=== PATIENT | male | born 1955 | race Caucasian/White ===

== ENCOUNTER 2018-04-27 11:45 | Inpatient (IN) ==
[2018-04-27] MEDS ORDERED: Sod Chloride 0.9% Inj 2,000 ML IV.SIG ONE (13:56)
[2018-04-27 14:26] LABS: Baso % (Auto) 0.7 % (0.0-2.0); Eos # (Auto) 0.2 th/mm3 (0.0-0.4); Hematocrit 40.3 % (39.0-51.0); Hemoglobin 13.4 gm/dL (13.0-17.0); Lymph # (Auto) 1.3 th/mm3 (1.0-4.8); Lymph % (Auto) 21.7 % (9.0-44.0); Mean Corpuscular HGB Conc 33.3 % (32.0-36.0); Mean Corpuscular Hemoglobin 30.6 pg (27.0-34.0); Mean Corpuscular Volume 91.8 fL (80.0-100.0); Mono # (Auto) 0.6 th/mm3 (0.0-0.9); Neut # (Auto) 3.9 th/mm3 (1.8-7.7); Neut % (Auto) 63.6 % (16.0-70.0); Platelet Count 324 th/mm3 (150-450); Red Blood Count 4.39 mil/mm3 (4.50-5.90); Red Cell Distribution Width 13.8 % (11.6-17.2); White Blood Count 6.2 th/mm3 (4.0-11.0)
--- NOTE | 2018-04-27 14:32 | ED ---
HPI General Chief complaint: Medical Clearance Stated complaint: dr sent/abnormal labs Time Seen by Provider: 04/27/18 13:49 Source: patient Mode of arrival: ambulatory History of Present Illness HPI narrative: 62yM sent in by PMD for abnormal labs. The patient states that for the past 4-5 days he's been having fevers (Tmax 104F), diaphoresis, nausea/ decreased PO intake, and watery diarrhea. He admits to diffuse "cramping" abdominal pain which is intermittent, non-radiating, not made better or worse by anything, and mild to moderate intensity. He was seen by his PMD yesterday and had a CXR (negative), X-ray abdomen (showed "gas in the bowel" as per family member), and labs that showed "severe dehydration", so he was sent to the ED for IV fluids and evaluation. The patient denies recent travel, antibiotics, or known sick contacts; he does not have any history of colitis, diverticulitis, or appendicitis in the past. Family history is non-contributory. Related Data Home Medications Medication Instructions Recorded Confirmed aspirin 81 mg PO DAILY 04/27/18 04/27/18 cholecalciferol (vitamin D3) 2,000 unit PO DAILY 04/27/18 04/27/18 [Vitamin D3] diltiazem HCl [Cardizem CD] 240 mg PO DAILY 04/27/18 04/27/18 hydrochlorothiazide 12.5 mg PO DAILY 04/27/18 04/27/18 lisinopril 40 mg PO DAILY 04/27/18 04/27/18 omeprazole magnesium [Prilosec OTC] 20 mg PO DAILY 04/27/18 04/27/18 simvastatin 20 mg PO QPM 04/27/18 04/27/18 Allergies Allergy/AdvReac Type Severity Reaction Status Date / Time No Known Allergies Allergy Unverified 04/27/18 13:53 Review of Systems Except as stated in HPI: all other systems reviewed are negative Constitutional Reports chills and Reports fever(s) Eyes Denies blurry vision ENT Denies nasal congestion Cardiovascular Denies chest pain Respiratory Denies cough Gastrointestinal Denies hematochezia, Reports cramping and Reports diarrhea Genitourinary Comments: (+) urine decreased Musculoskeletal Denies back pain Neurologic Denies confusion Psychiatric Denies confusion PMFSH History History Provided By: Patient Medical History Medical History Atrial fibrillation (Acute) HTN (hypertension) (Acute) High cholesterol (Acute) Surgical History Surgical History No history of previous surgery (Acute) Social History Social History Substance History: No History of Abuse Second Hand Smoke Exposure: Yes Smoking Status: Heavy tobacco smoker Tobacco Type: Cigarettes How Often Do You Have a Drink Containing Alcohol: 4 or more times a week Recent Travel in [facility] within the Last 8 Weeks: No Recent Out of Country Travel within the Last 8 Weeks: No Immunization History Tetanus Immunization: Unsure Hx Influenza Vaccine This Season: No Exam Const Other: Appears fatigued, no acute distress HENMT Head: normocephalic and atraumatic Face and sinus: normal facial exam Other: mucosa dry Eyes General: appearance normal, both eyes and all related structures Pupils: PERRL Chest Chest: normal inspection of the chest Resp Effort & Inspection: normal respiratory effort Auscultation: no rhonchi and no wheezes Cardio Rate: regular rate Rhythm: regular rhythm GI Other: Abdomen soft, non-tender in all quadrants, no guarding or rebound Skin General: no rashes or lesions noted Other: Poor skin turgor Neuro General: alert, awake, oriented x3 and no focal motor deficits Psych Affect: normal affect Course Initial Documented Vital Signs Temperature 98.7 F 04/27/18 12:28 Pulse Rate 107 H 04/27/18 12:28 Respiratory Rate 18 04/27/18 12:28 Blood Pressure 86/54 L 04/27/18 12:28 Pulse Oximetry 100 04/27/18 12:28 Last Documented Vital Signs Temperature 98.7 F 04/27/18 12:28 Pulse Rate 76 04/27/18 14:02 Respiratory Rate 19 04/27/18 14:02 Blood Pressure 105/52 L 04/27/18 14:02 Pulse Oximetry 99 04/27/18 14:02 Medical Decision Making [facility] Narrative Medical decision making narrative: Assessment: 62yM presenting with fever, diarrhea, dehydration Plan: IV fluids Labs, including lipase, CBC, lytes CT abd/ pelvis Reassess Addendum: Patient found to have acute kidney injury and ascending colitis on workup. Initially hypotensive but has improved with IV fluids. This patient cannot go home as he needs IV antibiotics, IV fluids, repeat labs, and re- evaluation at frequent intervals. I explained the results of all labs and imaging as well as plan of care to the patient; he understands and agrees. Case discussed with Dr. Gustafson of internal medicine service. Lab Data Result diagrams: 04/27/18 14:00 04/27/18 14:08 Lab Results 04/27/18 04/27/18 04/27/18 Range/Units 14:00 14:00 14:08 WBC 6.2 (4.0-11.0) th/mm3 RBC 4.39 L (4.50-5.90) mil/mm3 Hgb 13.4 (13.0-17.0) gm/dL Hct 40.3 (39.0-51.0) % MCV 91.8 (80.0-100.0) fL MCH 30.6 (27.0-34.0) pg MCHC 33.3 (32.0-36.0) % RDW 13.8 (11.6-17.2) % Plt Count 324 (150-450) th/mm3 MPV 9.0 (7.0-11.0) fL Neut % (Auto) 63.6 (16.0-70.0) % Lymph % (Auto) 21.7 (9.0-44.0) % [place] % (Auto) 10.0 H (0.0-8.0) % Eos % (Auto) 4.0 (0.0-4.0) % Baso % (Auto) 0.7 (0.0-2.0) % Neut # (Auto) 3.9 (1.8-7.7) th/mm3 Lymph # (Auto) 1.3 (1.0-4.8) th/mm3 [place] # (Auto) 0.6 (0.0-0.9) th/mm3 Eos # (Auto) 0.2 (0.0-0.4) th/mm3 Baso # (Auto) 0.0 (0.0-0.2) th/mm3 WBC Differential . Differential Comment Auto diff final Sodium 139 (136-145) meq/L Potassium 3.7 (3.5-5.1) meq/L Chloride 108 H (98-107) meq/L Carbon Dioxide 18.7 L (21.0-32.0) meq/L Anion Gap 12 (5-15) meq/L BUN 56 H (7-18) mg/dL Creatinine 2.97 H (0.60-1.30) mg/dL Estimated GFR 21 L (>89) mL/min Random Glucose 148 H (74-106) mg/dL Lactic Acid 1.9 (0.4-2.0) mmol/L Calcium 9.6 (8.5-10.1) mg/dL Total Bilirubin 0.2 (0.2-1.0) mg/dL AST 20 (15-37) U/L ALT 22 (12-78) U/L Alkaline Phosphatase 42 L (45-117) U/L Total Protein 7.7 (6.4-8.2) g/dL Albumin 3.3 L (3.4-5.0) g/dL Lipase 782 H (73-393) U/L Imaging Data Radiologist's impression: ITS Impressions Abdomen/Pelvis CT 04/27/18 14:48 CONCLUSION: 1. Acute ascending colitis. No perforation, abscess, or obstruction. 2. Chronic changes involving the left hip suggesting AVN. Discharge Plan Discharge Disposition Patient Disposition: 30 Still Patient Discharge Details Diagnosis: Colitis, Acute kidney injury, Acute dehydration Physicians Team ED Provider: Alpa Rodriguez Primary Care Provider: James Tirado Rxs /Orders / Referrals /Forms Prescriptions: No Action diltiazem HCl [Cardizem CD] 240 mg Capsule,Extended Release 24hr 240 mg PO DAILY RF: 0 simvastatin 20 mg Tablet 20 mg PO QPM RF: 0 aspirin 81 mg Tablet,Chewable 81 mg PO DAILY RF: 0 lisinopril 40 mg Tablet 40 mg PO DAILY RF: 0 omeprazole magnesium [Prilosec OTC] 20 mg Tablet,Delayed Release (Dr/Ec) 20 mg PO DAILY RF: 0 hydrochlorothiazide 12.5 mg Tablet 12.5 mg PO DAILY RF: 0 cholecalciferol (vitamin D3) [Vitamin D3] 2,000 unit Capsule 2,000 unit PO DAILY RF: 0 Discharge Interventions Interventions: Vital Signs Last Done: 04/27/18 14:02 Status ED Status: With Doctor
[2018-04-27 14:44] LABS: Albumin 3.3 g/dL (3.4-5.0); Anion Gap 12 meq/L (5-15); Aspartate Aminotransferase 20 U/L (15-37); Blood Urea Nitrogen 56 mg/dL (7-18); Calcium 9.6 mg/dL (8.5-10.1); Carbon Dioxide 18.7 meq/L (21.0-32.0); Chloride 108 meq/L (98-107); Glomerular Filtration Rate 21 mL/min (>89); Glucose,Random 148 mg/dL (74-106); Lipase 782 U/L (73-393); Potassium 3.7 meq/L (3.5-5.1); Sodium 139 meq/L (136-145)
[2018-04-27 14:48] LABS: Alanine Aminotransferase 22 U/L (12-78); Alkaline Phosphatase 42 U/L (45-117); Total Protein 7.7 g/dL (6.4-8.2)
[2018-04-27] MEDS ORDERED: Sod Chloride 0.9% Inj 1,000 ML IV.SIG ONE ×2 (16:24→16:40)
--- NOTE | 2018-04-27 16:25 | CT ---
EXAM DATE: 04/27/2018 4:18 PM EDT AGE/SEX: 62 years / Male INDICATIONS: Nausea, vomiting and abdominal pain. CLINICAL DATA: This is the patient's initial encounter. Patient reports that signs and symptoms have been present for 1 week and indicates a pain score of 5/10. MEDICAL/SURGICAL HISTORY: Cardiovascular disease. Hypertension. None. RADIATION DOSE: 7.06 CTDI (mGy) COMPARISON: None. TECHNIQUE: Multiple contiguous axial images were obtained through the abdomen. Images were obtained using multiple row detector helical technique. Using automated exposure control and adjustment of the mA and/or kV according to patient size, radiation dose was kept as low as reasonably achievable to o btain optimal diagnostic quality images. DICOM format image data is available electronically for rev iew and comparison. FINDINGS: Lower Lungs: The visualized lower lungs are clear. Liver: The liver has a homogeneous density without space-occupying lesion. There is no dilation of th e biliary tree. Spleen: Homogeneous density without enlargement. Pancreas: Unremarkable without mass or calcification. Kidneys: Normal in size and shape. An atherosclerotic calcification is seen involving the renal pelv is on the left. No collecting system stones observed. No evidence of mass or hydronephrosis. Adrenal Glands: Unremarkable. Aorta: The aorta and proximal iliac vessels are grossly unremarkable without aneurysmal dilation. Bowel/Mesentery: Circumferential wall thickening involving the ascending colon. Stranding of the per icolonic fat. The bowel loops are otherwise unremarkable on this unopacified study. Appendix is nehal l by CT criteria. No free air or free fluid. Abdominal Wall: Intact. Retroperitoneum: No evidence of adenopathy in the retrocrural, para-aortic, or deep pelvic regions. Bladder: Contours are smooth. Reproductive Organs: No abnormal masses or calcifications seen. Inguinal: The inguinal region is unremarkable without evidence of adenopathy. Bony Structures: Chronic changes involving the left femoral head suggesting AVN.. CONCLUSION: 1. Acute ascending colitis. No perforation, abscess, or obstruction. 2. Chronic changes involving the left hip suggesting AVN. Electronically signed by: Taras Malone MD 04/27/2018 4:24 PM EDT
[2018-04-27] MEDS ORDERED: Piperacil/Tazo 3.375 GM Premix 50 ML IV.SIG ONE (16:29)
--- NOTE | 2018-04-27 17:01 | P.HPIM ---
History of Present Illness Primary Care Physician: James Tirado MD Chief Complaint: Diarrhea History of Present Illness: Mr. Vincent is a 62 y/o male with atrial fibrillation, HTN, hyperlipidemia, CKD stage 3, and GERD. Pt reported to the ED at [facility] on 04/27/18 by his PCP, for abnormal labs indicating dehydration. The patient reports that for the past 4-5 days he's been having fevers (Tmax from 102-104F), abdominal cramping, nausea, decreased PO intake, and watery diarrhea. He describes the abdominal pain as diffuse cramping pain, occurring intermittently. Pt was seen by Dr. Manjarrez and was sent for KUB (04/27/18) with nonspecific bowel gas pattern with mild bowel distension, no free air, and vascular calcifications are noted and suspected left femoral head osteonecrosis. The CXR (04/27/18) did not show any infiltrate or other acute abnormality is seen. His labs noted Cr 3.21/BUN 49 and GFR 19. His Lipase was 142 on outpt labs. Previous labs in 02/2017 noted Creatinine 1.19/BUN 25, GFR 65. He was sent to the ED for IV fluids and evaluation. In the ED her labs noted Cr 2.97, BUN 56, GFR 21. His Lipase in the ED was 782 and LFTs were WNL. Pt drinks alcohol daily but has not had any in the last [address] Abd/pelvis w/o IV contrast noted acute ascending colitis, no perforation, abscess, or obstruction, and chronic changes involving the left hip suggesting AVN. The patient denies recent travel, antibiotics, or known sick contacts; he does not have any history of colitis, diverticulitis, or appendicitis in the past. Past Medical Hx A. Fib BPH CAD CKD, stage 3 GERD HTN Hyperlipidemia PVD Past Surgical Hx Prostate biopsy Colonoscopy (07/08/10) with Dr. Stinson which revealed a sessile rectosigmoid polyp, diverticular disease. Family Hx Mother with hx of CAD Father with hx of colon cancer Social Hx (+)tobacco use, smokes 1-1.5ppd x 40+ years (+)alcohol use, 5-6 drinks daily Denies any illicit drug use He works as an surg tech - Diagnosis (1) Acute kidney injury superimposed on chronic kidney disease (2) Colitis (3) Elevated lipase (4) Alcohol use (5) A-fib (6) HTN (hypertension) (7) Hyperlipidemia Inpatient Certification: I certify that the inpatient services were ordered in accordance with Medicare regulations governing the order. This includes certification that hospital inpatient services are reasonable and necessary and in the case of services not specified as inpatient-only under 42 CFR 419.22(n), that they are appropriately provided as inpatient services in accordance to with the 2-midnight benchmark under 43 CFR 412.3(e) Review of Systems All other systems reviewed negative except as stated in HPI Constitutional: Reports fever(s), Denies chills Eyes: Denies change in vision Ears, Nose, Mouth, and Throat: Denies dizziness, Denies sore throat Cardiovascular: Denies chest pain, Denies leg swelling, Denies lightheadedness, Denies shortness of breath Respiratory: Denies cough, Denies shortness of breath, Denies wheezing Gastrointestinal: Reports abdominal pain, Reports change in stools, Reports cramping, Reports incontinent of stools, Reports loose stools, Reports nausea, Denies black, tarry stools, Denies bloating, Denies vomiting Genitourinary: Denies urinary incontinence, Denies urinary urgency Musculoskeletal: Denies back pain, Denies neck pain Neurologic: Denies abnormal speech, Denies dizziness, Denies headache(s) PMFSH - History History Provided By: Patient - Medical History Medical History: Medical History (Last Reviewed 04/27/18 @ 14:35 by Alpa Rodriguez DO) Atrial fibrillation HTN (hypertension) High cholesterol - Surgical History Surgical History: Surgical History (Last Reviewed 04/27/18 @ 14:35 by Alpa Rodriguez DO) No history of previous surgery - Tobacco History Second Hand Smoke Exposure: Yes Tobacco Use In Past 30 Days: Yes Smoking Status: Heavy tobacco smoker Tobacco Type: Cigarettes - Alcohol History How Often Do You Have a Drink Containing Alcohol: 4 or more times a week - Substance Use History Substance History: No History of Abuse - Travel History Recent Travel in the [place] Within the Last 8 Weeks: No Recent Travel Out of the Country Within the Last 8 Weeks: No - Immunization History Tetanus Immunization: Unsure Hx Influenza Vaccine This Season: No Medications and Allergies Active Medications: Active Medications Piperacillin/Tazobactam/Dextrose (Zosyn 3.375 Gm Premix) 50 mls @ 100 mls/hr IV.SIG ONCE ONE Stop: 04/27/18 16:58 Allergies Allergy/AdvReac Type Severity Reaction Status Date / Time No Known Allergies Allergy Unverified 04/27/18 13:53 Home Medications Medication Instructions Recorded Confirmed Type aspirin 81 mg PO DAILY 04/27/18 04/27/18 History cholecalciferol (vitamin D3) 2,000 unit PO DAILY 04/27/18 04/27/18 History [Vitamin D3] diltiazem HCl [Cardizem CD] 240 mg PO DAILY 04/27/18 04/27/18 History omeprazole magnesium [Prilosec OTC] 20 mg PO DAILY 04/27/18 04/27/18 History simvastatin 20 mg PO QPM 04/27/18 04/27/18 History Exam Vital signs: Vital Signs 04/27/18 12:28 04/27/18 14:02 Temperature 98.7 F Pulse Rate 107 H 76 Respiratory Rate 18 19 Blood Pressure 86/54 L 105/52 L Pulse Oximetry 100 99 Intake & Output 04/26/18 04/27/18 04/27/18 18:59 06:59 18:59 Intake Total 1999 Balance 1999 Weight 54.885 kg Intake: IV 1999 NS Inj 2,000 ML @ Wide Open IV. 1999 SIG BOLUS ONE Rx#:[id number] Narrative: GENERAL: NAD, AAOx3 SKIN: Warm and dry. HEENT: Atraumatic. Normocephalic. Pupils equal and round. No scleral icterus. No injection or drainage. No nasal bleeding or discharge. Mucous membranes pink and moist. NECK: Trachea midline. No JVD. CARDIO: Regular. RESP: No accessory muscle use. Clear to auscultation. Breath sounds equal bilaterally. ABD: +BS, soft, non-tender, nondistended. Hepatic and splenic margins not palpable. EXT: Extremities without clubbing, cyanosis, or edema. No obvious deformities. NEURO: Awake and alert. No obvious cranial nerve deficits. Motor grossly within normal limits. Five out of 5 muscle strength in the arms and legs. Normal speech. PSYCHIATRIC: Appropriate mood and affect; insight and judgment normal. Results - Labs CBC & Chem 7: 04/28/18 06:29 04/28/18 06:29 Labs: Short CBC 04/27/18 Range/Units 14:00 WBC 6.2 (4.0-11.0) th/mm3 Hgb 13.4 (13.0-17.0) gm/dL Hct 40.3 (39.0-51.0) % Plt Count 324 (150-450) th/mm3 BMP 04/27/18 14:08 Sodium 139 Potassium 3.7 Chloride 108 H Carbon Dioxide 18.7 L BUN 56 H Creatinine 2.97 H Calcium 9.6 Liver Function 04/27/18 Range/Units 14:08 Total Bilirubin 0.2 (0.2-1.0) mg/dL AST 20 (15-37) U/L ALT 22 (12-78) U/L Alkaline Phosphatase 42 L (45-117) U/L Albumin 3.3 L (3.4-5.0) g/dL - Imaging Impressions Abdomen/Pelvis CT 04/27/18 14:48 CONCLUSION: 1. Acute ascending colitis. No perforation, abscess, or obstruction. 2. Chronic changes involving the left hip suggesting AVN. Caprini VTE Risk Assessment Caprini VTE Risk Assessment: Moderate/High Risk (score >= 2) Caprini Risk Assessment Model: Point Value = 1 Point Value = 2 Point Value = 3 Point Value = 5 Age 41-60 Minor surgery BMI > 25 kg/m2 Swollen legs Varicose veins or History of unexplained or recurrent spontaneous Oral contraceptives or hormone replacement Sepsis (< 1 month) Serious lung disease, including pneumonia (< 1 month) Abnormal pulmonary function Acute myocardial infarction Congestive heart failure (< 1 month) History of inflammatory bowel disease Medical patient at bed rest Age 61-74 Arthroscopic surgery Major open surgery (> 45 min) Laparoscopic surgery (> 45 min) Malignancy Confined to bed (> 72 hours) Immobilizing plaster cast Central venous access Age >= 75 History of VTE Family history of VTE Factor V Leiden Prothrombin [id number] Lupus anticoagulant Anticardiolipin antibodies Elevated serum homocysteine Heparin-induced thrombocytopenia Other congenital or acquired thrombophilia Stroke (< 1 month) Elective arthroplasty Hip, pelvis, or leg fracture Acute spinal cord injury (< 1 month) Prophylaxis Regimen: Total Risk Factor Score Risk Level Prophylaxis Regimen 0-1 Low Early ambulation 2 Moderate Order ONE of the following: *Sequential Compression Device (SCD) *Heparin 5000 units SQ BID 3-4 Higher Order ONE of the following medications: *Heparin 5000 units SQ TID *Enoxaparin/Lovenox 40 mg SQ daily (WT < 150 kg, CrCl > 30 mL/min) *Enoxaparin/Lovenox 30 mg SQ daily (WT < 150 kg, CrCl > 10-29 mL/min) *Enoxaparin/Lovenox 30 mg SQ BID (WT < 150 kg, CrCl > 30 mL/min) AND/OR *Sequential Compression Device (SCD) 5 or more Highest Order ONE of the following medications: *Heparin 5000 units SQ TID (Preferred with Epidurals) *Enoxaparin/Lovenox 40 mg SQ daily (WT < 150 kg, CrCl > 30 mL/min) *Enoxaparin/Lovenox 30 mg SQ daily (WT < 150 kg, CrCl > 10-29 mL/min) *Enoxaparin/Lovenox 30 mg SQ BID (WT < 150 kg, CrCl > 30 mL/min) AND *Sequential Compression Device (SCD) Assessment and Plan - Assessment (1) Acute kidney injury superimposed on chronic kidney disease Code(s): N17.9 - Acute kidney failure, unspecified; N18.9 - Chronic kidney disease, unspecified Status: Acute Plan: LUIS EDUARDO superimposed on CKD, stage 3 Dehydration - Pt is a 62 y/o male with atrial fibrillation, HTN, hyperlipidemia, CKD stage 3 , and GERD. Pt reported to the ED at [facility] on 04/27/18 for abnormal labs indicating dehydration. - The patient reported a 4-5 day hx of fevers (Tmax from 102-104F), abdominal cramping, nausea, decreased PO intake, and watery diarrhea. - Pt was seen by Dr. 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 The CXR (04/27/18) did not show any infiltrate or other acute abnormality is seen. His labs noted Cr 3.21/BUN 49 and GFR 19. His Lipase was 142 on outpt labs. - Baseline outpt labs in 02/2017 noted Creatinine 1.19/BUN 25, GFR 65. - In the ED his labs noted Cr 2.97, BUN 56, GFR 21. - LUIS EDUARDO likely secondary to dehydration related to poor po intake and diarrhea - Given IVF resuscitation - Hold HCTZ and Lisinopril - Repeat labs in AM Elevated Lipase - Pts Lipase in the ED was 782 and LFTs were WNL. - Pt drinks alcohol daily but has not had any in the last 4 days. - CT Abd/pelvis w/o IV contrast (04/27/18) -Acute ascending colitis, no perforation, abscess, or obstruction, and chronic changes involving the left hip suggesting AVN. - Give IVF - Clear liquids for now, pt is symptomatically improving with IVF in the ED Diarrhea Nausea Abdominal cramping Fever Ascending colitis on CT scan - Etiology unclear, possibly infectious vs. inflammatory vs. other - Check stool studies, including C. diff - Give IVF - Pt was given Zosyn in the ED. We will continue Flagyl for now and await stool studies - Consider GI consultation - Last colonoscopy was in [address] Stinson which noted a sessile rectosigmoid polyp, diverticular disease. A. fib - Telemetry - Cont. ASA - Cardizem as BP can tolerate HTN - BP is low likely related to dehydration - Hold Lisinopril and HCTZ - Giving IVF - Monitor closely Hyperlipidemia - Cont. home meds GERD - PPI (2) Colitis Code(s): K52.9 - Noninfective gastroenteritis and colitis, unspecified Status : Acute (3) Elevated lipase Code(s): R74.8 - Abnormal levels of other serum enzymes Status: Acute (4) Alcohol use Code(s): Z78.9 - Other specified health status Status: Acute (5) A-fib Code(s): I48.91 - Unspecified atrial fibrillation Status: Acute (6) HTN (hypertension) Code(s): I10 - Essential (primary) hypertension Status: Acute (7) Hyperlipidemia Code(s): E78.5 - Hyperlipidemia, unspecified Status: Acute
[2018-04-27] MEDS ORDERED: Acetaminophen 325 MG Tablet PO PRN (17:07)
[2018-04-27] MEDS ORDERED: Sod Chloride 0.9% Inj 1,000 ML IV.CONT SCH (17:15)
[2018-04-28 07:20] LABS: Baso % (Auto) 0.7 % (0.0-2.0); Eos # (Auto) 0.5 th/mm3 (0.0-0.4); Eos % (Auto) 7.3 % (0.0-4.0); Hematocrit 32.2 % (39.0-51.0); Hemoglobin 10.6 gm/dL (13.0-17.0); Lymph # (Auto) 1.7 th/mm3 (1.0-4.8); Lymph % (Auto) 24.9 % (9.0-44.0); Mean Corpuscular HGB Conc 32.8 % (32.0-36.0); Mean Corpuscular Hemoglobin 30.2 pg (27.0-34.0); Mean Platelet Volume 8.8 fL (7.0-11.0); Mono # (Auto) 0.9 th/mm3 (0.0-0.9); Mono % (Auto) 12.9 % (0.0-8.0); Neut # (Auto) 3.7 th/mm3 (1.8-7.7); Neut % (Auto) 54.2 % (16.0-70.0); Platelet Count 271 th/mm3 (150-450); Red Blood Count 3.51 mil/mm3 (4.50-5.90); Red Cell Distribution Width 13.5 % (11.6-17.2); White Blood Count 6.9 th/mm3 (4.0-11.0)
[2018-04-28 07:41] LABS: Alanine Aminotransferase 15 U/L (12-78); Albumin 2.4 g/dL (3.4-5.0); Alkaline Phosphatase 30 U/L (45-117); Amylase 64 U/L (25-115); Anion Gap 12 meq/L (5-15); Aspartate Aminotransferase 18 U/L (15-37); Blood Urea Nitrogen 36 mg/dL (7-18); Calcium 8.4 mg/dL (8.5-10.1); Carbon Dioxide 16.2 meq/L (21.0-32.0); Chloride 117 meq/L (98-107); Glomerular Filtration Rate 44 mL/min (>89); Glucose,Random 84 mg/dL (74-106); Lipase 811 U/L (73-393); Potassium 3.9 meq/L (3.5-5.1); Sodium 145 meq/L (136-145); Total Protein 5.6 g/dL (6.4-8.2)
[2018-04-28] MEDS ORDERED: Pantoprazole Sodium 20 MG DR Tablet PO SCH (09:00)
[2018-04-28] MEDS ORDERED: dilTIAZem CD 240 MG Capsule PO SCH (09:00)
--- NOTE | 2018-04-28 10:14 | P.PNIM ---
Subjective Interval history: abdomen pain resolved. just one loose stool since admission no vomiting Physical Exam Vital signs: Vital Signs 04/27/18 12:28 04/27/18 14:02 04/27/18 17:56 Temperature 98.7 F Pulse Rate 107 H 76 64 Respiratory Rate 18 19 20 Blood Pressure 86/54 L 105/52 L 106/56 L Pulse Oximetry 100 99 04/27/18 20:00 04/28/18 00:00 04/28/18 04:00 Temperature 97.4 F L 97.6 F 97.8 F Pulse Rate 63 63 62 Respiratory Rate 17 18 19 Blood Pressure 118/63 105/55 L 101/62 Pulse Oximetry 96 98 97 04/28/18 04:44 04/28/18 08:00 Temperature 97.8 F Pulse Rate 57 L 54 L Respiratory Rate 20 Blood Pressure 110/61 Pulse Oximetry 97 Intake & Output 04/27/18 04/28/18 04/28/18 18:59 06:59 18:59 Intake Total 1999 340 / 340 100 / 100 Output Total 1100 / 1100 Balance 1999 -760 / -760 100 / 100 Weight 54.885 kg 56.2 kg Intake: IV 1999 100 / 100 100 / 100 NS Inj 2,000 ML @ Wide Open IV. 1999 SIG BOLUS ONE Rx#:[id number] Flagyl 500 MG Inj 100 ML @ 100 100 / 100 100 / 100 mls/hr IV.SIG Q8H JARRED Rx#: [id number] Oral 240 / 240 Output: Urine 1100 / 1100 Other: Weight On Admission 56.5 kg heart reg lung cta abd s/nt/nabs/nd ext no edema Results - Labs CBC & Chem 7: 04/28/18 06:29 04/28/18 06:29 Laboratory Results - last 24 hr 04/27/18 04/27/18 04/27/18 14:00 14:00 14:08 WBC 6.2 RBC 4.39 L Hgb 13.4 Hct 40.3 MCV 91.8 MCH 30.6 MCHC 33.3 RDW 13.8 Plt Count 324 MPV 9.0 Neut % (Auto) 63.6 Lymph % (Auto) 21.7 Sunflower % (Auto) 10.0 H Eos % (Auto) 4.0 Baso % (Auto) 0.7 Neut # (Auto) 3.9 Lymph # (Auto) 1.3 Sunflower # (Auto) 0.6 Eos # (Auto) 0.2 Baso # (Auto) 0.0 WBC Differential . Differential Comment Auto diff final Sodium 139 Potassium 3.7 Chloride 108 H Carbon Dioxide 18.7 L Anion Gap 12 BUN 56 H Creatinine 2.97 H Estimated GFR 21 L Random Glucose 148 H Lactic Acid 1.9 Calcium 9.6 Total Bilirubin 0.2 AST 20 ALT 22 Alkaline Phosphatase 42 L Total Protein 7.7 Albumin 3.3 L Amylase Lipase 782 H 04/28/18 04/28/18 06:29 06:29 WBC 6.9 RBC 3.51 L Hgb 10.6 L D Hct 32.2 L MCV 92.0 MCH 30.2 MCHC 32.8 RDW 13.5 Plt Count 271 MPV 8.8 Neut % (Auto) 54.2 Lymph % (Auto) 24.9 Sunflower % (Auto) 12.9 H Eos % (Auto) 7.3 H Baso % (Auto) 0.7 Neut # (Auto) 3.7 Lymph # (Auto) 1.7 Sunflower # (Auto) 0.9 Eos # (Auto) 0.5 H Baso # (Auto) 0.0 WBC Differential . Differential Comment Auto diff final Sodium 145 Potassium 3.9 Chloride 117 H D Carbon Dioxide 16.2 L Anion Gap 12 BUN 36 H Creatinine 1.60 H Estimated GFR 44 L Random Glucose 84 Lactic Acid Calcium 8.4 L D Total Bilirubin 0.1 L AST 18 ALT 15 Alkaline Phosphatase 30 L Total Protein 5.6 L D Albumin 2.4 L D Amylase 64 Lipase 811 H - Imaging Impressions Abdomen/Pelvis CT 04/27/18 14:48 CONCLUSION: 1. Acute ascending colitis. No perforation, abscess, or obstruction. 2. Chronic changes involving the left hip suggesting AVN. Assessment and Plan - Assessment (1) Acute kidney injury superimposed on chronic kidney disease Code(s): N17.9 - Acute kidney failure, unspecified; N18.9 - Chronic kidney disease, unspecified Status: Acute Plan: LUIS EDUARDO superimposed on CKD, stage 3 Dehydration - Pt is a 62 y/o male with atrial fibrillation, HTN, hyperlipidemia, CKD stage 3 , and GERD. Pt reported to the ED at [facility] [place] on 04/27/18 for abnormal labs indicating dehydration. - The patient reported a 4-5 day hx of fevers (Tmax from 102-104F), abdominal cramping, nausea, decreased PO intake, and watery diarrhea. - Pt was seen by Dr. 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 The CXR (04/27/18) did not show any infiltrate or other acute abnormality is seen. His labs noted Cr 3.21/BUN 49 and GFR 19. His Lipase was 142 on outpt labs. - Baseline outpt labs in 02/2017 noted Creatinine 1.19/BUN 25, GFR 65. - In the ED his labs noted Cr 2.97, BUN 56, GFR 21. - LUIS EDUARDO likely secondary to dehydration related to poor po intake and diarrhea - Given IVF resuscitation - Hold HCTZ and Lisinopril improving.cont ivf Elevated Lipase - Pts Lipase in the ED was 782 and LFTs were WNL. - Pt drinks alcohol daily but has not had any in the last 4 days. - CT Abd/pelvis w/o IV contrast (04/27/18) -Acute ascending colitis, no perforation, abscess, or obstruction, and chronic changes involving the left hip suggesting AVN. - Give IVF - no abdomen pain. advance diet. Diarrhea Nausea Abdominal cramping Fever Ascending colitis on CT scan - Etiology unclear, possibly infectious vs. inflammatory vs. other - Check stool studies, including C. diff - Give IVF - Pt was given Zosyn in the ED. We will continue Flagyl and levaquin. - Last colonoscopy was in [address] Stinson which noted a sessile rectosigmoid polyp, diverticular disease. pt will need colonoscopy at some point. likely outpt. A. fib - Telemetry - Cont. ASA - Cardizem held due to usama HTN - BP is low likely related to dehydration - Hold Lisinopril and HCTZ - Giving IVF - Monitor closely Hyperlipidemia - Cont. home meds GERD - PPI (2) Colitis Code(s): K52.9 - Noninfective gastroenteritis and colitis, unspecified Status : Acute (3) Elevated lipase Code(s): R74.8 - Abnormal levels of other serum enzymes Status: Acute (4) Alcohol use Code(s): Z78.9 - Other specified health status Status: Acute (5) A-fib Code(s): I48.91 - Unspecified atrial fibrillation Status: Acute (6) HTN (hypertension) Code(s): I10 - Essential (primary) hypertension Status: Acute (7) Hyperlipidemia Code(s): E78.5 - Hyperlipidemia, unspecified Status: Acute
[2018-04-28] MEDS ORDERED: levoFLOXacin 500 MG Tablet PO SCH (10:15)
== END 2018-04-28 17:16 | disposition home or self-care (01) ==
LOC: NEPC 11:45 → NEDA 16:44 → N04 20:00
PROVIDERS: ADMIT Hospitalist; ATTEND Hospitalist